=== PATIENT | female | born 1970 | race Hispanic/Latino ===

== ENCOUNTER 2019-11-10 20:41 | Emergency (ER) | payer BC, OTHER ==
--- OUTSIDE RECORDS SUMMARY | 2019-11-10 20:43 | XMS REPORT | Continuity of Care Document ---
:1970 Author Organization [facility] t Address [address] [place] [address] Care Team Providers Name Role Phone Romy THOMPSON, Mike Primary Care Physician MULU OQUENDO Attending Clinician Unavailable MULU OQUENDO Admitting Clinician Unavailable Problems Condition Condition Condition Status Onset Resolution Last Treating Co mments Source Name Details Category Date Date Treatment Clinician Date Wound Wound Disease Active [facility] de[facility]iscence dehiscence 7-16 Nicole kes - 00:00: Medical 00 [place] Abdominal Abdominal Disease Active [facility]: [facility] 00 [facility] Abdominal Abdominal Disease Active [facility] 7-13 [facility]iscence de[facility]iscence 00:00: Me dical , initial , initial 00 Cent er encounter encounter Wound Wound Disease Active [facility] abscess abscess 7-13 [facility] - [facility]: Medical 00 [place] Biliary Biliary Disease Active 2015-[address] [facility] [address] colic colic 02-20 [facility] - 00:[facility]: Medical 00 [place] Allergies, Adverse Reactions, Alerts Allergy Allergy Status Severity Reaction(s) Onset Inactive Treating Comm ents Source Name Type Date Date Clinician Peanut Drug Active [facility]2015-02 All nuts [facility] - [facility]: Medical 00 [place] Social History Social Habit Start Date Stop Date Quantity Comments Source Sex Assigned At [facility] Smoking Status Start Date Stop Date Source Never smoker [facility] Medications Ordered Filled Start Stop Current Ordering Indication Dosage Frequency Signature Comments Components Source Medication Medication Date Date Medication? Clinician (SIG) Name Name cetirizine 2015-02 Yes 10mg QD Take [address] (ZYRTEC) 10 1-07 by mouth Luke s - MG chewable 10:15: daily. Medi joni tablet 32 Center calcium 2015-02 Yes 1{tbl} Take [address] [facility] carbonate-v 1-03 tablet by Mariangel es - itamin D3 08:49: mouth 2 Medic al (CALCIUM- 04 (two) Center TAMIN D) times 500 daily with mg(1,250mg) breakfast -200 unit and per tablet dinner. ergocalcife 2015-02 Yes [id number] Q7D Take [facility] rol 1-03 50,000 [facility] - (VITAMIN 08:49: Units by Medic al D2) 50,000 [address] unit a week. capsule multivitami 2015-02 Yes 1{tbl} QD Take [address] n with 1-03 tablet by [facility] - minerals 08:49: mouth Medical tablet 04 daily. Center Procedures This patient has no known procedures. Results Test Description Test Time Test Comments Results Result Comments Source AFB CULTURE + SMEAR 2016-10-14 11:29:00 Test Item Value Reference Range Interpretation Comme nts CULTURE (BEAKER) (test code = 1095) No acid-fast bacilli isolated i n 42 days AFB SMEAR (BEAKER) (test code = 994) No acid fast bacilli seen FUNGUS CULTURE + [id number] 11:47:00 Test Item Value Reference Range Interpretation Comments CULTURE (BEAKER) (test No fungus isolated in code = 1095) 28 days FUNGUS SMEAR (BEAKER) No fungi seen (test code = 1406) SURGICALLY OBTAINED CULTURE + GRAM [id number] 11:21:00 Test Item Value Reference Interpretation Comments Range CULTURE (BEAKER) COAGULASE NEGATIVE A 3+ Co agulase (test code = 1095) STAPHYLOCOCCUS negativ e Staphylococcus Ampicillin (test code = 26) Ciprofloxacin (test code = 7) Clindamycin (test S code = 10) Daptomycin (test code = 59) Erythromycin (test R code = 4) Gentamicin (test code = 18) Gentamicin High Level Synergy (test code = 241) Levofloxacin (test S code = 22) Linezolid (test code S = 40) Moxifloxacin (test code = 36) Nitrofurantoin (test S code = 23) Oxacillin (test code S = 14) Rifampin (test code S = 43) Streptomycin High Level Synergy (test code = 242) Tetracycline (test S code = 2) Tigecycline (test code = 133) Trimethoprim + S Sulfamethoxazole (test code = 47) Vancomycin (test S code = 13) CULTURE (BEAKER) COAGULASE NEGATIVE A 3+ Co agulase (test code = 1095) STAPHYLOCOCCUS negativ e Staphylococcuso f a second type Ampicillin (test code = 262) Ciprofloxacin (test code = 72) Clindamycin (test S code = 10) Daptomycin (test code = 592) Erythromycin (test S code = 4) Gentamicin (test code = 182) Gentamicin High Level Synergy (test code = 2412) Levofloxacin (test R code = 22) Linezolid (test code S = 40) Moxifloxacin (test code = 362) Nitrofurantoin (test S code = 23) Oxacillin (test code R = 14) Rifampin (test code S = 43) Streptomycin High Level Synergy (test code = 2422) Tetracycline (test S code = 2) Tigecycline (test code = 1332) Trimethoprim + S Sulfamethoxazole (test code = 47) Vancomycin (test S code = 13) CULTURE (BEAKER) A <1+ Coagula se (test code = 1095) negative Staphylococcuso f a third type GRAM STAIN RESULT <1+ WBCs (BEAKER) (test code = 1123) GRAM STAIN RESULT No organisms seen (BEAKER) (test code = 796982) ANAEROBIC [id number] 03:56:00 Test Item Value Reference Range Interpretation Comments CULTURE (BEAKER) (test No anaerobes isolated code = 1095) TISSUE [id number] 13:12:00Surgical Pathology Report Case: [id number] Authorizing Provider: Elkin Oquendo Collected: 08/26/2016 1723 MD Mulu OrderingLocation: [facility] Received: 08/27/2016 0832 SERVICES Pathologist: Mynor Montoya MD Specimen: Abdominal, Abdominal wall SOFT TISSUE, ABDOMINAL WALL, DEBRIDEMENT: - FIBROSIS, FAT NECROSIS, GRANULATION TISSUE [id number] wound, delayed wound healingAbdominal wallThe specimen is received in a formalin-filled container and labeled with the patient's information and labeled "abdominal wall" and consists of multiple ragged fragments of grajeda-yellow soft tissue measuring 4.5 x 4x 1.5 cm in aggregate. Electric Accounting Machine Operator sections submitted A1 and A2. CG/pl Performed. HEMOGLOBIN AND [id number] 10:10:00 Test Item Value Reference Range Interpretation Comments HEMOGLOBIN (BEAKER) (test code = 9.5 GM/DL 12.0-15.0 L 410) HEMATOCRIT (BEAKER) (test code = 28.7 % 36.0-45.0 L 411) [id number] 06:11:00 Test Item Value Reference Range Interpretation Comments PHOSPHORUS (BEAKER) (test code = 4.0 mg/dL 2.3-4.7 604) [id number] 06:11:00 Test Item Value Reference Range Interpretation Comments MAGNESIUM (BEAKER) (test code = 1.6 mg/dL 1.6-2.6 627) BASIC METABOLIC [id number] 06:11:00 Test Item Value Reference Range Interpretation Comments SODIUM (BEAKER) 135 meq/L 136-145 L (test code = 381) POTASSIUM (BEAKER) 4.5 meq/L 3.5-5.1 (test code = 379) CHLORIDE (BEAKER) 108 meq/L 98-107 H (test code = 382) CO2 (BEAKER) (test 20 meq/L 22-29 L code = 355) BLOOD UREA NITROGEN 11 mg/dL 7-21 (BEAKER) (test code = 354) CREATININE (BEAKER) 0.62 mg/dL 0.57-1.25 (test code = 358) GLUCOSE RANDOM 164 mg/dL 70-105 H (BEAKER) (test code = 652) CALCIUM (BEAKER) 8.0 mg/dL 8.4-10.2 L (test code = 697) EGFR (BEAKER) (test 104 mL/min/1.73 ESTIM ATED GFR IS code = 1092) sq m NOT ACCURATE CREATININE CLEARANCE IN PREDICTING GLOMERULAR FILTRATION RATE . ESTIMATED GFR I S NOT APPLICABLE FOR DIALYSIS PATIEN TS. SPIN/CONCENTRATION [id number] 04:32:00 Test Item Value Reference Range Interpretation Comments CONCENTRATION CHARGED (BEAKER) (test Done code = 2657)
--- OUTSIDE RECORDS SUMMARY | 2019-11-10 20:43 | XMS REPORT | Clinical Summary ---
:1970 Author Organization [facility] Address [address] [place] [address] Care Team Providers Name Role Phone Mike Stanton MD Primary Care Provider Allergies Active Allergy Reactions Severity Noted Date Comments Peanut Swelling, Rash High 12/18/2015 All nuts Medications Medication Sig Dispensed Refills Start Date End Date Status calcium Take 1 tablet by 0 Act comfort carbonate-vitamin D3 mouth 2 (two) (CALCIUM-VITAMIN D) 500 times daily with mg(1,250mg) -200 unit breakfast and per tablet dinner. ergocalciferol (VITAMIN Take 50,000 Units 0 Active D2) 50,000 unit capsule by mouth once a week. multivitamin with Take 1 tablet by 0 Active minerals tablet mouth daily. cetirizine (ZYRTEC) 10 Take 10 mg by 0 Active MG chewable tablet mouth daily. Active Problems Problem Noted Date Wound dehiscence 08/29/2016 Abdominal wound dehiscence 08/27/2016 Abdominal wound dehiscence, initial encounter 08/27/19 17 Wound abscess 08/26/2016 Biliary colic 12/22/2015 Social History Tobacco Use Types Packs/Day Years Used Date Never Smoker Smokeless Tobacco: Never Used Alcohol Use Drinks/Week oz/Week Comments No Sex Assigned at Date Recorded Not on file Job Start Date Occupation Industry Not on file Not on file Not on file Travel History Travel Start Travel End No recent travel history available. Last Filed Vital Signs Not on file Plan of Treatment Not on file Implants Implanted Type Area Customer Sales Service Manager Device Shelf Model / Identifier Expiration Serial / Date Lot Bone Lizz Cruz 10cc 620-010 - [id number] Cement/F N/A: BI OCOMPOSITES 03/16/2019 620-010 / Implanted: Qty: 1 on 08/26/2016 by Elkin Souza MD iller/Ad Abdomen / hesive 03/02-R311 -[id number] Results Not on fileafter 11/09/2018 Insurance Payer Benefit Plan / Group Subscriber ID Type Phone A ddress [facility] xxxxxxxxx Advance Directives For more information, please contact:[address] [phone] Code Status Date Activated Date Inactivated Comments Full Code 08/26/2016 11:15 AM 08/26/2016 10:26 PM This code status was determined by: Patient Full Code 12/22/2015 10:13 AM 12/22/2015 5:07 PM This code status was determined by: Patient
--- NOTE | 2019-11-10 20:58 | ER ---
Nurse's Notes [facility] Name: Conchita Burger Age: 49 yrs Sex: Female : 1970 Arrival Date: 11/10/2019 Time: 20:43 Bed 4 Private MD: Diagnosis: Allergy to other foods-avocado oil Presentation: 11/09 20:46 Chief complaint: Patient states: Cooked with avocado oil tonight. Eating, and 15 ll1 minutes later she had tingling to throat, slight cough, irritated tongue. No major swelling or SOB. Coronavirus screen: Client denies travel out of the [place] in the last 14 days. At this time, the client does not indicate any symptoms associated with coronavirus-19. Ebola Screen: Patient denies travel to an Ebola-affected area in the 21 days before illness onset. Onset: The symptoms/episode began/occurred 1 hour(s) ago. Anaphylaxis evaluation, no signs or symptoms of anaphylaxis were noted. Initial Sepsis Screen: Does the patient meet any 2 criteria? No. Patient's initial sepsis screen is negative. Risk Assessment: Do you want to hurt yourself or someone else? Patient reports no desire to harm self or others. Onset of symptoms was November 10, 2019. 20:46 Method Of Arrival: Ambulatory ll1 20:46 Acuity: MARTY 3 ll1 21:10 Initial Sepsis Screen: Does the patient have a suspected source of infection? No. rv Patient's initial sepsis screen is negative. Triage Assessment: 21:10 General: Behavior is calm, cooperative. rv Historical: - Allergies: 20:48 Nuts; ll1 - PSHx: 20:48 gastric sleeve; Tubal ligation; Hernia repair; Cholecystectomy; ll1 - Immunization history:: Flu vaccine is not up to date. - Social history:: Smoking status: Patient denies any tobacco usage or history of. Screenin:10 Abuse screen: Denies threats or abuse. Denies injuries from another. Nutritional rv screening: No deficits noted. Tuberculosis screening: No symptoms or risk factors identified. Fall Risk None identified. Assessment: 21:09 General: Appears in no apparent distress. Pain: Denies pain. Neuro: Level of rv Consciousness is awake, alert, obeys commands, Oriented to person, place, time, situation. Cardiovascular: Patient's skin is warm and dry. Respiratory: Airway is patent Respiratory effort is even, unlabored, Breath sounds are clear bilaterally. Derm: Skin is intact. Vital Signs: 20:46 BP 135 / 54; Pulse 71; Resp 18; Temp 98.2; Pulse Ox 100% ; Pain 0/10; ll1 ED Course: 20:43 Patient arrived in ED. cf2 20:48 Triage completed. ll1 20:49 Arm band placed on Patient placed in an exam room, on a stretcher. ll1 20:54 Meche Rausch FNP-C is PHCP. snw 20:54 Jeffy Foster MD is Attending Physician. snw 21:00 Jp Ames, GERARD is Primary Nurse. rv 21:10 Patient has correct armband on for positive identification. Pulse ox on. NIBP on. rv 21:10 No provider procedures requiring assistance completed. Patient did not have IV access rv during this emergency room visit. Administered Medications: 21:06 Drug: Pepcid 20 mg Route: PO; rv 21:11 Follow up: Response: Medication administered at discharge. rv 21:06 Drug: ZyrTEC - Cetirizine 10 mg Route: PO; rv 21:10 Follow up: Response: Medication administered at discharge. rv 21:06 Drug: predniSONE 40 mg Route: PO; rv 21:10 Follow up: Response: Medication administered at discharge. rv Outcome: 20:58 Discharge ordered by . snw 21:10 Discharged to home ambulatory. rv 21:10 Condition: good 21:10 Discharge instructions given to patient, Instructed on discharge instructions, follow up and referral plans. medication usage, Demonstrated understanding of instructions, follow-up care, medications, Prescriptions given X 3. 21:11 Patient left the ED. rv Signatures: Meche Rausch FNP-C DELIVERY PROFESSIONAL-Csnw Jp Ames, RN RN rv Abel Toledo cf2 Gina Alejandro RN RN ll1
--- NOTE | 2019-11-10 20:58 | EDPHYS ---
Physician Documentation [facility] Name: Conchita Burger Age: 49 yrs Sex: Female : 1970 Arrival Date: 11/10/2019 Time: 20:43 Bed 4 Private MD: ED Physician Jeffy Foster HPI: 11/09 21:23 This 49 yrs old Female presents to ER via Ambulatory with complaints of snw Allergic Reaction. 21:23 The patient presents with itching, tingling in posterior throat. Onset: The snw symptoms/episode began/occurred suddenly, just prior to arrival. Associated signs and symptoms: Pertinent positives: itching and tingling in throat. Possible causes: Avocado oil. At home the patient or guardian has treated the symptoms with nothing. Severity of symptoms: At their worst the symptoms were mild. The patient has not experienced similar symptoms in the past. It is unknown whether or not the patient has recently seen a physician. Historical: - Allergies: 20:48 Nuts; ll1 - PSHx: 20:48 gastric sleeve; Tubal ligation; Hernia repair; Cholecystectomy; ll1 - Immunization history:: Flu vaccine is not up to date. - Social history:: Smoking status: Patient denies any tobacco usage or history of. ROS: 21:21 Constitutional: Negative for fever, chills, and weight loss, Eyes: Negative for injury, snw pain, redness, and discharge, Neck: Negative for injury, pain, and swelling, Cardiovascular: Negative for chest pain, palpitations, and edema, Respiratory: Negative for shortness of breath, cough, wheezing, and pleuritic chest pain, Abdomen/GI: Negative for abdominal pain, nausea, vomiting, diarrhea, and constipation, Back: Negative for injury and pain, : Negative for injury, bleeding, discharge, and swelling, MS/Extremity: Negative for injury and deformity, Skin: Negative for injury, rash, and discoloration, Neuro: Negative for headache, weakness, numbness, tingling, and seizure, Psych: Negative for depression, anxiety, suicide ideation, homicidal ideation, and hallucinations. 21:21 ENT: Positive for itching in posterior throat, frequent throat clearing, tingling. Exam: 21:21 Constitutional: This is a well developed, well nourished patient who is awake, alert, snw and in no acute distress. Head/Face: Normocephalic, atraumatic. Eyes: Pupils equal round and reactive to light, extra-ocular motions intact. Lids and lashes normal. Conjunctiva and sclera are non-icteric and not injected. Cornea within normal limits. Periorbital areas with no swelling, redness, or edema. Neck: Trachea midline, no thyromegaly or masses palpated, and no cervical lymphadenopathy. Supple, full range of motion without nuchal rigidity, or vertebral point tenderness. No Meningismus. Chest/axilla: Normal chest wall appearance and motion. Nontender with no deformity. No lesions are appreciated. Cardiovascular: Regular rate and rhythm with a normal S1 and S2. No gallops, murmurs, or rubs. Normal PMI, no JVD. No pulse deficits. Respiratory: Lungs have equal breath sounds bilaterally, clear to auscultation and percussion. No rales, rhonchi or wheezes noted. No increased work of breathing, no retractions or nasal flaring. Abdomen/GI: Soft, non-tender, with normal bowel sounds. No distension or tympany. No guarding or rebound. No evidence of tenderness throughout. Back: No spinal tenderness. No costovertebral tenderness. Full range of motion. Skin: Warm, dry with normal turgor. Normal color with no rashes, no lesions, and no evidence of cellulitis. MS/ Extremity: Pulses equal, no cyanosis. Neurovascular intact. Full, normal range of motion. Neuro: Awake and alert, GCS 15, oriented to person, place, time, and situation. Cranial nerves II-XII grossly intact. Motor strength 5/5 in all extremities. Sensory grossly intact. Cerebellar exam normal. Normal gait. Psych: Awake, alert, with orientation to person, place and time. Behavior, mood, and affect are within normal limits. 21:21 ENT: External ear(s): are unremarkable, Nose: is normal, Mouth: is normal, Posterior pharynx: Airway: patent, Voice: is normal. Vital Signs: 20:46 BP 135 / 54; Pulse 71; Resp 18; Temp 98.2; Pulse Ox 100% ; Pain 0/10; ll1 MDM: 20:58 Patient medically screened. snw 21:23 Data reviewed: vital signs, nurses notes. Data interpreted: Pulse oximetry: on room air snw is 100 %. Interpretation: normal. Counseling: I had a detailed discussion with the patient and/or guardian regarding: the historical points, exam findings, and any diagnostic results supporting the discharge/admit diagnosis, the need for outpatient follow up, for definitive care, to return to the emergency department if symptoms worsen or persist or if there are any questions or concerns that arise at home. Special discussion: Based on the history and exam findings, there is no indication for further emergent testing or inpatient evaluation. I discussed with the patient/guardian the need to see the communication and outreach manager for further evaluation of the symptoms. I discussed with the patient/guardian the need to see the primary care provider for further evaluation of the symptoms. Administered Medications: 21:06 Drug: Pepcid 20 mg Route: PO; rv 21:11 Follow up: Response: Medication administered at discharge. rv 21:06 Drug: ZyrTEC - Cetirizine 10 mg Route: PO; rv 21:10 Follow up: Response: Medication administered at discharge. rv 21:06 Drug: predniSONE 40 mg Route: PO; rv 21:10 Follow up: Response: Medication administered at discharge. rv Disposition: 11/10 01:50 Co-signature as Attending Physician, Jeffy Foster MD. [email or web address] Disposition: 11/10/19 20:58 Discharged to Home. Impression: Allergy to other foods - avocado oil. - Condition is Stable. - Discharge Instructions: Allergies, Adult, Food Allergy. - Prescriptions for Zyrtec 10 mg Oral Tablet - take 1 tablet by ORAL route once daily As needed; 20 tablet. Prednisone 20 mg Oral Tablet - take 2 tablet by ORAL route once daily for 5 days; 10 tablet. Pepcid 20 mg Oral Tablet - take 1 tablet by ORAL route once daily; 20 tablet. - Medication Reconciliation Form, Thank You Letter, Antibiotic Education, Prescription Opioid Use form. - Follow up: Emergency Department; When: As needed; Reason: Trouble breathing, Worsening of condition. Follow up: Private Physician; When: 2 - 3 days; Reason: Recheck today's complaints, Continuance of care, Re-evaluation by your physician. Signatures: Meche Rausch, SARAH RECRUITING ASSISTANT-Armaniw Jp Ames RN RN rv Gina Alejandro RN RN [facility] Jeffy Foster MD MD [email or web address] Corrections: (The following items were deleted from the chart) 11/09 21:11 20:58 11/10/2019 20:58 Discharged to Home. Impression: Allergy to other foods - avocado rv oil. Condition is Stable. Forms are Medication Reconciliation Form, Thank You Letter, Antibiotic Education, Prescription Opioid Use. Follow up: Emergency Department; When: As needed; Reason: Trouble breathing, Worsening of condition. Follow up: Private Physician; When: 2 - 3 days; Reason: Recheck today's complaints, Continuance of care, Re-evaluation by your physician. snw
[2019-11-10] MEDS ORDERED: CETIRIZINE HCL 5 MG TABLET ONE (21:15)
[2019-11-10 21:16] VITALS: BP 135/54; TEMP 98.2; O2SAT 100
[2019-11-10] MEDS ORDERED: FAMOTIDINE 20 MG TAB ONE (21:16)
[2019-11-10] MEDS ORDERED: predniSONE 20 MG TAB ONE (21:16)
== END 2019-11-10 21:11 | disposition home or self-care (01) ==
LOC: ER 20:41
DX: L29.9 Pruritus, unspecified (principal); Z91.018 Allergy to other foods
CPT/HCPCS: 99283; J7512

== ENCOUNTER 2020-03-23 18:01 | Emergency (ER) | payer BC ==
--- OUTSIDE RECORDS SUMMARY | 2020-03-23 18:03 | XMS REPORT | Continuity of Care Document ---
:1970 Author Organization [facility] t Address [address] [place] [address] Care Team Providers Name Role Phone Romy THOMPSON, Mike Primary Care Physician MULU OQUENDO Attending Clinician Unavailable MULU OQUENDO Admitting Clinician Unavailable Problems Condition Condition Condition Status Onset Resolution Last Treating Co mments Source Name Details Category Date Date Treatment Clinician Date Wound Wound Disease Active [facility] de[facility]iscence dehiscence 7-16 Nicole kes - 00:00: Medical 00 [place] Abdominal Abdominal Disease Active [facility]: [facility] 00 Center Abdominal Abdominal Disease Active [facility] wound [facility] 7-13 [facility] de[facility]iscence de[facility]iscence 00:00: Me dical , initial , initial 00 Cent er encounter encounter Wound Wound Disease Active [facility] abscess abscess 08-26 [facility]: Medical 00 [place] Biliary Biliary Disease Active 2015-[address] [facility] [address] colic colic 02-20 [facility] - 00:[facility]: Medical 00 [place] Allergies, Adverse Reactions, Alerts Allergy Allergy Status Severity Reaction(s) Onset Inactive Treating Comm ents Source Name Type Date Date Clinician Peanut Drug Active Swelling, 2015-02 [facility] 00 [place] Social History Social Habit Start Date Stop Date Quantity Comments Source Sex Assigned At [facility] Tobacco use and 2016-08-27 2016-08-27 Never used [facility] kes - exposure 00:00:00 00:00:00 [facility] Center Alcohol intake 2016-08-27 2016-08-[address] [facility] - 00:00:00 00:00:00 non-drinker of Medical Ce nter alcohol (finding) Smoking Status Start Date Stop Date Source Never smoker [facility] Medications Ordered Filled Start Stop Current Ordering Indication Dosage Frequency Signature Comments Components Source Medication Medication Date Date Medication? Clinician (SIG) Name Name calcium Yes 1{tbl} Take [address] [facility] [address] carbonate-v 7-18 tablet by [facility] - itamin D3 11:03: mouth 2 Medic al (CALCIUM- 13 (two) Center TAMIN D) times 500 daily with mg(1,250mg) breakfast -200 unit and per tablet dinner. ergocalcife Yes [id number] Q7D Take [facility] rol 7-18 50,000 [facility] - (VITAMIN 11:03: Units by Medic al D2) 50,000 [address] unit a week. capsule multivitami Yes 1{tbl} QD Take [address] n with 7-18 tablet by [facility] - minerals 11:03: mouth Medical tablet 13 daily. [place] cetirizine Yes 10mg QD Take [address] (ZYRTEC) 10 7-18 by mouth Luke s - MG chewable 11:03: daily. [facility] joni tablet 13 Center Procedures This patient has no known procedures. Results Test Description Test Time Test Comments Results Result Comments Source AFB CULTURE + SMEAR 2016-10-14 11:29:00 Test Item Value Reference Range Interpretation Comme nts CULTURE (BEAKER) (test code = 1095) No acid-fast bacilli isolated i n 42 days AFB SMEAR (BEAKER) (test code = 994) No acid fast bacilli seen FUNGUS CULTURE + [id number] 11:47:00 Test Item Value Reference Range Interpretation Comments CULTURE (BEAKER) (test No fungus isolated in code = 1095) 28 days FUNGUS SMEAR (BEAKER) No fungi seen (test code = 1406) SURGICALLY OBTAINED CULTURE + GRAM [id number] 11:21:00 Test Item Value Reference Interpretation Comments [...] No organisms seen (BEAKER) (test code = 950770) ANAEROBIC [id number] 03:56:00 Test Item Value Reference Range Interpretation Comments CULTURE (BEAKER) (test No anaerobes isolated code = 1095) TISSUE [id number] 13:12:00Surgical Pathology Report Case: [id number] Authorizing Provider: Elkin Oquendo Collected: 08/26/2016 [id number] MD Mulu [facility] Received: 08/27/2016 0832 SERVICES Pathologist: Mynor Montoya MD Specimen: Abdominal, Abdominal wall SOFT TISSUE, ABDOMINAL WALL, DEBRIDEMENT: - FIBROSIS, FAT NECROSIS, GRANULATION TISSUE [id number] wound, delayed wound healingAbdominal wallThe specimen is received in a formalin-filled container and labeled with the patient's information and labeled "abdominal wall" and consists of multiple ragged fragments of grajeda-yellow soft tissue measuring 4.5 x 4x 1.5 cm in aggregate. Leaf Coverer sections submitted A1 and A2. CG/pl Performed. HEMOGLOBIN AND [id number] 10:10:00 Test Item Value Reference Range Interpretation Comments HEMOGLOBIN (BEAKER) (test code = 9.5 GM/DL 12.0-15.0 L 410) HEMATOCRIT (BEAKER) (test code = 28.7 % 36.0-45.0 L 411) [id number] 06:11:00 Test Item Value Reference Range Interpretation Comments PHOSPHORUS (BEAKER) (test code = 4.0 mg/dL 2.3-4.7 604) [id number] 06:11:00 Test Item Value Reference Range Interpretation Comments MAGNESIUM (BEAKER) (test code = 1.6 mg/dL 1.6-2.6 627) BASIC METABOLIC [id number] 06:11:00 Test Item Value Reference Range Interpretation [...] NOT APPLICABLE FOR DIALYSIS PATIEN TS. SPIN/CONCENTRATION [id number] 04:32:00 Test Item Value Reference Range Interpretation Comments CONCENTRATION CHARGED (RAMA) (test Done code = 9823)
--- OUTSIDE RECORDS SUMMARY | 2020-03-23 18:03 | XMS REPORT | Clinical Summary ---
:1970 Author Organization [facility] Address [address] [place] [address] Care Team Providers Name Role Phone Mike [...] Assigned at Date Recorded Not on file Last Filed Vital Signs Not on file Plan of Treatment Not on file Implants Implanted Type Area Director Of Dementia Operations Device Shelf Model / Identifier Expiration Serial / Date Lot Juma Cruz 10cc 620-010 - [id number] Cement/F N/A: BI OCOMPOSITES 03/16/2019 620-010 / Implanted: Qty: 1 on 08/26/2016 by Bullo cks, Elkin Hardwick MD at [facility] iller/Ad Abdomen / hesive 03/02-R311 -312 Description:Mixed with 240mg tobra and 5 00mg vanco Results Not on fileafter 03/23/2019 Insurance Payer Benefit Plan / Subscriber ID Effective Dates Phone Addre ss Type Group [facility] [id number] 2015-Present - MGD CARE Advance Directives For more information, please contact: [phone] Code Status Date Activated Date Inactivated Comments Full Code 08/26/2016 11:15 AM 08/26/2016 10:26 PM This code status was determined by: Patient Full Code 12/22/2015 10:13 AM 12/22/2015 5:07 PM This code status was determined by: Patient
[2020-03-23 20:28] LABS: Absolute Lymphocytes (CBC) 4.4 K/uL (0.7-4.9); Hematocrit 39.4 % (36.0-45.0); Lymphocytes % 39.8 % (15.3-44.8); MPV 8.9 fL (7.6-11.3); RBC Red Blood Cell Count 4.77 M/uL (3.86-4.86)
[2020-03-23 20:31] LABS: Protime INR 0.93
[2020-03-23 20:49] LABS: ALT/SGPT 25 U/L (12-78); AST/SGOT 14 U/L (15-37); Albumin 3.9 g/dL (3.4-5.0); Alkaline Phosphatase 99 U/L (45-117); BUN Blood Urea Nitrogen 13 mg/dL (7-18); Bicarbonate 26 mmol/L (21-32); Bilirubin Direct 0.2 mg/dL (0-0.2); Bilirubin Total 0.7 mg/dL (0.2-1.0); Glucose Level 84 mg/dL (74-106); Magnesium 2.2 mg/dL (1.8-2.4); NT PRO-BNP 24 pg/mL (<125); Potassium 3.8 mmol/L (3.5-5.1); Protein, Total 7.7 g/dL (6.4-8.2); Sodium Level 143 mmol/L (136-145); Troponin (Emerg Dept Use Only) < 0.02 ng/mL (0.0-0.045)
--- NOTE | 2020-03-23 20:55 | RAD REPORT ---
EXAM DESCRIPTION: RAD - Chest Single View - 03/23/2020 8:36 pm CLINICAL HISTORY: radiated pain Chest pain. COMPARISON: No comparisons FINDINGS: Portable technique limits examination quality. The lungs are grossly clear. The heart is normal in size. No displaced fractures. IMPRESSION: No acute intrathoracic process suspected.
[2020-03-23] MEDS ORDERED: MAGNES/ALUMIN/SIMET 30ML UCUP ONE (21:26)
[2020-03-23] MEDS ORDERED: LIDOCAINE VISCOUS 2% SOLN 15 ML UDC ONE (21:27)
--- NOTE | 2020-03-23 21:59 | ER ---
Nurse's Notes [facility] Name: Conchita Burger Age: 49 yrs Sex: Female : 1970 Arrival Date: 03/23/2020 Time: 18:02 Bed 15 Private MD: Diagnosis: Back Pain Presentation: 03/23 18:42 Chief complaint: Patient states: has upper left back pain and feels the pain on the iw inside, started last night after eating chicken nuggets, denies n/v/d, denies urinary s/s. Coronavirus screen: At this time, the client does not indicate any symptoms associated with coronavirus-19. Ebola Screen: Patient negative for fever greater than or equal to 101.5 degrees Fahrenheit, and additional compatible Ebola Virus Disease symptoms Patient denies exposure to infectious person. Patient denies travel to an Ebola-affected area in the 21 days before illness onset. No symptoms or risks identified at this time. Initial Sepsis Screen: Does the patient meet any 2 criteria? No. Patient's initial sepsis screen is negative. Does the patient have a suspected source of infection? No. Patient's initial sepsis screen is negative. Risk Assessment: Do you want to hurt yourself or someone else? Patient reports no desire to harm self or others. Onset of symptoms was March 22, 2020. 18:42 Method Of Arrival: Ambulatory iw 18:42 Acuity: MARTY 3 iw Historical: - Allergies: 18:45 Nuts; iw - Home Meds: 18:45 gabapentin oral oral [Active]; iw - PMHx: 18:45 GERD; iw - PSHx: 18:45 gastric sleeve; Tubal ligation; Hernia repair; Cholecystectomy; iw - Immunization history:: Adult Immunizations not up to date. - Social history:: Smoking status: Patient denies any tobacco usage or history of. Vital Signs: 18:42 BP 120 / 63; Pulse 71; Resp 16; Pulse Ox 100% on R/A; Weight 81.65 kg; Height 5 ft. 1 iw in. (154.94 cm); Pain 7/10; 18:42 Body Mass Index 34.01 (81.65 kg, 154.94 cm) iw ED Course: 18:02 Patient arrived in ED. ag5 18:44 Triage completed. iw 18:45 Arm band placed on. iw 19:12 Mickail, Tyrell, PA is PHCP. [facility] 19:12 Jeffy Foster MD is Attending Physician. [facility] 19:31 Randee Duenas, RN is Primary Nurse. ll2 20:14 Inserted saline lock: 22 gauge in left hand, using aseptic technique. Blood collected. 4 20:36 XRAY Chest (1 view) In Process Unspecified. EDMS Administered Medications: 21:15 Drug: GI Cocktail without - (Maalox Suspension 30 ml, Lidocaine Liquid 2 % 15 ll2 ml) Route: PO; Outcome: 21:59 Discharge ordered by . [facility] 22:21 Patient left the ED. ll2 Signatures: Dispatcher [employer] EDMS Tyrell Perry PA PA Anaid Zambrano, RN RN Tyesha Medrano ag5 Jonathan Villegas 4 Randee Duenas, RN RN 2
--- NOTE | 2020-03-23 21:59 | EDPHYS ---
Physician Documentation [facility] Name: Conchita Burger Age: 49 yrs Sex: Female : 1970 Arrival Date: 03/23/2020 Time: 18:02 Bed 15 Private MD: ED Physician Jeffy Foster HPI: 03/23 19:20 This 49 yrs old Female presents to ER via Ambulatory with complaints of Back jmm Pain, Abdominal Pain. 19:20 The patient presents with pain that is acute. Onset: The symptoms/episode jmm began/occurred gradually, 1 day(s) ago. The pain does not radiate. Associated signs and symptoms: Pertinent negatives: abdominal pain, chest pain. This is a 49 year old female with a history of GERD that presents to the ED with complaints of left upper back pain which occurred after eating a chicken nugget. pain has been persistent since. Denies abdominal pain, denies chest pain. . Historical: - Allergies: 18:45 Nuts; iw - Home Meds: 18:45 gabapentin oral oral [Active]; iw - PMHx: 18:45 GERD; iw - PSHx: 18:45 gastric sleeve; Tubal ligation; Hernia repair; Cholecystectomy; iw - Immunization history:: Adult Immunizations not up to date. - Social history:: Smoking status: Patient denies any tobacco usage or history of. ROS: 19:20 Constitutional: Negative for fever, chills, and weight loss, Cardiovascular: Negative jmm for chest pain, palpitations, and edema, Respiratory: Negative for shortness of breath, cough, wheezing, and pleuritic chest pain. 19:20 Back: Positive for pain at rest. 19:20 All other systems are negative. Exam: 19:20 Constitutional: This is a well developed, well nourished patient who is awake, alert, jmm and in no acute distress. Head/Face: atraumatic. Eyes: EOMI, no conjunctival erythema appreciated ENT: Moist Mucus Membranes Neck: Trachea midline, Supple Chest/axilla: Normal chest wall appearance and motion. Cardiovascular: Regular rate and rhythm. No edema appreciated Respiratory: Normal respirations, no respiratory distress appreciated Abdomen/GI: Non distended, soft Back: Normal ROM Skin: General appearance color normal MS/ Extremity: Moves all extremities, no obvious deformities appreciated, no edema noted to the lower extremities Neuro: Awake and alert, normal gait Psych: Behavior is normal, Mood is normal, Patient is cooperative and pleasant Vital Signs: 18:42 BP 120 / 63; Pulse 71; Resp 16; Pulse Ox 100% on R/A; Weight 81.65 kg; Height 5 ft. 1 iw in. (154.94 cm); Pain 7/10; 18:42 Body Mass Index 34.01 (81.65 kg, 154.94 cm) iw MDM: 19:20 Patient medically screened. [facility] 21:57 Data reviewed: vital signs, nurses notes. Counseling: I had a detailed discussion with anastasia the patient and/or guardian regarding: the historical points, exam findings, and any diagnostic results supporting the discharge/admit diagnosis, lab results, radiology results, the need for outpatient follow up, to return to the emergency department if symptoms worsen or persist or if there are any questions or concerns that arise at home. ED course: Pain has decreased in the ED. Patient has no chest pain. I do not currently suspect ACS. Advised to follow up with GI for further evaluation. patient understood and agrees with the plan of care. . 03/23 19:21 Order name: Basic Metabolic Panel; Complete Time: 20:[address] [facility] 03/23 19:21 Order name: CBC with Diff; Complete Time: 20:[address] [facility] 03/23 19:21 Order name: LFT's; Complete Time: 20:[address] [facility] 03/23 19:21 Order name: Magnesium; Complete Time: 20:[address] [facility] 03/23 19:21 Order name: NT PRO-BNP; Complete Time: 20:[address] [facility] 03/23 19:21 Order name: PT-INR; Complete Time: 20:[address] [facility] 03/23 19:21 Order name: Troponin (emerg Dept Use Only); Complete Time: 20:[address] [facility] 03/23 19:21 Order name: XRAY Chest (1 view); Complete Time: 21:[address] [facility] 03/23 19:21 Order name: EKG; Complete Time: 19:[address] [facility] 03/23 19:21 Order name: Cardiac monitoring; Complete Time: 20:[address] [facility] 03/23 19:21 Order name: EKG - Nurse/Tech; Complete Time: 20:[address] [facility] 03/23 19:21 Order name: IV Saline Lock; Complete Time: 20:[address] [facility] 03/23 19:21 Order name: D-Dimer; Complete Time: 20:[address] [facility] 03/23 19:21 Order name: Labs collected and sent; Complete Time: 20:[address] [facility] 03/23 19:21 Order name: O2 Per Protocol; Complete Time: 20:[address] [facility] 03/23 19:21 Order name: O2 Sat Monitoring; Complete Time: 20:[address] [facility] Administered Medications: 21:15 Drug: GI Cocktail without - (Maalox Suspension 30 ml, Lidocaine Liquid 2 % 15 ll2 ml) Route: PO; Disposition: 03/24 05:13 Co-signature as Attending Physician, Jeffy Foster MD. 7 Disposition: 03/23/20 21:59 Discharged to Home. Impression: Back Pain. - Condition is Stable. - Discharge Instructions: Thoracic Strain. - Medication Reconciliation Form, Thank You Letter, Antibiotic Education, Prescription Opioid Use form. - Follow up: Private Physician; When: 2 - 3 days; Reason: Recheck today's complaints, Continuance of care, Re-evaluation by your physician. Signatures: Dispatcher [employer] EDMS Tyrell Perry PA PA [facility] Anaid David RN RN Randee Duenas RN RN [facility] Jeffy Foster MD MD 7 Corrections: (The following items were deleted from the chart) 03/23 22:21 21:59 03/23/2020 21:59 Discharged to Home. Impression: Back Pain. Condition is Stable. ll2 Forms are Medication Reconciliation Form, Thank You Letter, Antibiotic Education, Prescription Opioid Use. Follow up: Private Physician; When: 2 - 3 days; Reason: Recheck today's complaints, Continuance of care, Re-evaluation by your physician. [facility]
[2020-03-23 23:01] VITALS: BP 120/63; O2SAT 100
== END 2020-03-23 22:21 | disposition home or self-care (01) ==
LOC: ER 18:01
DX: M54.9 Dorsalgia, unspecified (principal); K21.9 Gastro-esophageal reflux disease without esophagitis; Z91.018 Allergy to other foods
CPT/HCPCS: 36415; 71045; 80048; 80076; 83735; 83880; 84484; 85025; 85379; 85610; 93005; 99284